=== PATIENT | male | born 1965 | race Caucasian/White ===

== ENCOUNTER 2017-01-04 14:09 | Emergency (ER) | payer MEDICAID ==
[~2017-01-04] VITALS: Ht 182.9 cm; Wt 86.2 kg
[~2017-01-04 14:09] MED LIST: AUG500 PO; KEPPRA500 MG PO; LAC PO
[2017-01-04 15:28] VITALS: BP 101/41
== END 2017-01-04 17:42 | disposition home or self-care (01) ==
LOC: ED 14:09
DX: F10.10 Alcohol abuse, uncomplicated (principal); F17.210 Nicotine dependence, cigarettes, uncomplicated
CPT/HCPCS: 99406

== ENCOUNTER 2017-01-05 16:09 | Emergency (ER) | payer MEDICAID ==
[~2017-01-05] VITALS: Ht 185.4 cm; Wt 95.2 kg
[2017-01-05 18:45] VITALS: BP 110/76
== END 2017-01-05 20:55 | disposition home or self-care (01) ==
LOC: ED 16:09
DX: F10.229 Alcohol dependence with intoxication, unspecified (principal)

== ENCOUNTER 2017-01-06 16:52 | Emergency (ER) | payer MEDICAID ==
[~2017-01-06] VITALS: Ht 177.8 cm; Wt 90.7 kg
== END 2017-01-06 17:40 | disposition left against medical advice (07) ==
LOC: ED 16:52
DX: F10.229 Alcohol dependence with intoxication, unspecified (principal)

== ENCOUNTER 2017-01-06 20:19 | Inpatient (IN) | payer MEDICAID ==
[~2017-01-06] VITALS: Ht 175.3 cm; Wt 82.7 kg
[2017-01-06 20:52] LABS: BASOPHIL % 0.8 % (0-2); PLATELET COUNT 283 x10^3mcL (130-400)
[2017-01-06 20:55] LABS: RED CELL DISTRIBUTION WIDTH 18.9 % (11.5-14.5)
[2017-01-06 21:02] LABS: CARBON DIOXIDE 25.7 mmol/L (21-32); CHLORIDE SERUM 101 mmol/L (98-107); CREATININE SERUM 0.8 mg/dL (0.7-1.3); GFR1 > 60 mL/min; GLUCOSE SERUM 99 mg/dL (74-106); POTASSIUM SERUM 3.5 mmol/L (3.5-5.1); SODIUM SERUM 139 mmol/L (136-145)
[2017-01-06 21:06] LABS: ALBUMIN 3.4 g/dL (3.4-5.0); ALKALINE PHOSPHATASE 102 U/L (46-116); ALT/SGPT 46 U/L (16-63); AST/SGOT 47 U/L (15-37); BILIRUBIN TOTAL 0.2 mg/dL (0.20-1.00); LIPASE 392 IU/L (73-393); TOTAL PROTEIN, SERUM 7.1 g/dL (6.4-8.2)
[2017-01-06 22:21] LABS: MAGNESIUM 1.7 mg/dL (1.8-2.4); PHOSPHOROUS 3.2 mg/dL (2.5-4.9)
[2017-01-06 22:23] LABS: CHOLESTEROL/HDL RATIO 1.5
[2017-01-06 22:37] VITALS: BP 96/51
[2017-01-06 22:40] LABS: T3 TOTAL 1.05 ng/mL
[2017-01-06 22:46] LABS: FREE T4 1.06 ng/dL (0.76-1.46); FREE THYROXINE INDEX 2.5 ug/dL (1.4-4.5); T4(THYROXINE) 6.8 ug/dL (4.7-13.3)
[2017-01-07 05:35] VITALS: BP 109/66
[2017-01-07 07:43] LABS: CALCIUM 8.2 mg/dL (8.5-10.1); CARBON DIOXIDE 24.7 mmol/L (21-32); CHLORIDE SERUM 107 mmol/L (98-107); CREATININE SERUM 0.7 mg/dL (0.7-1.3); GFR1 > 60 mL/min; GLUCOSE SERUM 78 mg/dL (74-106); MAGNESIUM 2.3 mg/dL (1.8-2.4); POTASSIUM SERUM 3.8 mmol/L (3.5-5.1); SODIUM SERUM 143 mmol/L (136-145)
[2017-01-07 07:59] LABS: BASOPHIL % 0.6 % (0-2); PLATELET COUNT 283 x10^3mcL (130-400); RED CELL DISTRIBUTION WIDTH 18.8 % (11.5-14.5)
[2017-01-07 10:17] VITALS: BP 132/72
[2017-01-07 13:29] VITALS: BP 129/88
[2017-01-07 15:16] VITALS: BP 129/88
== END 2017-01-07 15:27 | disposition home or self-care (01) | DRG 775 ==
LOC: ED 20:19 → DU 21:11
PROVIDERS: Emergency Medicine; Family Medicine; ADMIT Family Medicine
DX: F10.129 Alcohol abuse with intoxication, unspecified (principal); G92 Toxic encephalopathy; E83.42 Hypomagnesemia; G93.89 Other specified disorders of brain; E83.51 Hypocalcemia; D64.9 Anemia, unspecified; Z86.73 Personal history of transient ischemic attack (TIA), and cerebral infarction without residual deficits; G40.909 Epilepsy, unspecified, not intractable, without status epilepticus; Z59.0 Homelessness
CPT/HCPCS: 83880; 84439; G0480; J2060; J3475; J7030; Q0092

== ENCOUNTER 2017-01-09 22:37 | Emergency (ER) | payer MEDICAID ==
[2017-01-09 23:40] LABS: BASOPHIL % 0.9 % (0-2); PLATELET COUNT 273 x10^3mcL (130-400)
[2017-01-09 23:41] LABS: RED CELL DISTRIBUTION WIDTH 19.4 % (11.5-14.5)
[2017-01-09 23:49] LABS: CALCIUM 8.4 mg/dL (8.5-10.1); CARBON DIOXIDE 25.5 mmol/L (21-32); CHLORIDE SERUM 104 mmol/L (98-107); CREATININE SERUM 0.8 mg/dL (0.7-1.3); GFR1 > 60 mL/min; GLUCOSE SERUM 103 mg/dL (74-106); POTASSIUM SERUM 3.7 mmol/L (3.5-5.1); SODIUM SERUM 141 mmol/L (136-145)
[2017-01-09 23:54] LABS: ALBUMIN 3.4 g/dL (3.4-5.0); ALKALINE PHOSPHATASE 103 U/L (46-116); ALT/SGPT 53 U/L (16-63); AST/SGOT 58 U/L (15-37); BILIRUBIN TOTAL 0.2 mg/dL (0.20-1.00); MAGNESIUM 1.8 mg/dL (1.8-2.4); TOTAL PROTEIN, SERUM 7.1 g/dL (6.4-8.2)
[2017-01-10 05:58] VITALS: BP 147/92
== END 2017-01-10 05:58 | disposition home or self-care (01) ==
LOC: ED 22:37
PROVIDERS: Emergency Medicine
DX: F10.129 Alcohol abuse with intoxication, unspecified (principal)
CPT/HCPCS: G0480; J3490

== ENCOUNTER 2017-01-10 13:04 | Emergency (ER) | payer MEDICAID ==
[~2017-01-10] VITALS: Ht 180.3 cm; Wt 80.0 kg
[2017-01-10 17:36] VITALS: BP 107/71
== END 2017-01-10 17:36 | disposition home or self-care (01) ==
LOC: ED 13:04
DX: F10.10 Alcohol abuse, uncomplicated (principal)

== ENCOUNTER 2017-01-11 10:44 | Emergency (ER) | payer MEDICAID ==
[2017-01-11 13:46] VITALS: BP 125/83
== END 2017-01-11 16:28 | disposition home or self-care (01) ==
LOC: ED 10:44
DX: F10.10 Alcohol abuse, uncomplicated (principal)

== ENCOUNTER 2017-01-11 18:00 | Emergency (ER) | payer MEDICAID ==
[2017-01-11 19:39] LABS: BASOPHIL % 1.3 % (0-2); PLATELET COUNT 252 x10^3mcL (130-400)
[2017-01-11 19:41] LABS: CARBON DIOXIDE 23.6 mmol/L (21-32); CHLORIDE SERUM 105 mmol/L (98-107); CREATININE SERUM 0.8 mg/dL (0.7-1.3); GFR1 > 60 mL/min; GLUCOSE SERUM 85 mg/dL (74-106); POTASSIUM SERUM 3.8 mmol/L (3.5-5.1); SODIUM SERUM 142 mmol/L (136-145)
[2017-01-11 19:47] LABS: ALKALINE PHOSPHATASE 97 U/L (46-116); ALT/SGPT 80 U/L (16-63); AST/SGOT 111 U/L (15-37); BILIRUBIN TOTAL 0.36 mg/dL (0.20-1.00); TOTAL PROTEIN, SERUM 7.5 g/dL (6.4-8.2)
[2017-01-11 19:49] LABS: ALBUMIN 3.2 g/dL (3.4-5.0)
[2017-01-12 01:48] VITALS: BP 106/61
== END 2017-01-12 01:48 | disposition home or self-care (01) ==
LOC: ED 18:00
PROVIDERS: Emergency Medicine
DX: F10.129 Alcohol abuse with intoxication, unspecified (principal)
CPT/HCPCS: 36415; G0480

== ENCOUNTER 2017-01-12 20:56 | Emergency (ER) | payer MEDICAID ==
[2017-01-13 05:51] VITALS: BP 115/88
== END 2017-01-13 05:51 | disposition home or self-care (01) ==
LOC: ED 20:56
DX: F10.129 Alcohol abuse with intoxication, unspecified (principal)

== ENCOUNTER 2017-01-13 13:11 | Emergency (ER) | payer MEDICAID ==
[2017-01-13 20:33] VITALS: BP 117/75
== END 2017-01-13 20:33 | disposition home or self-care (01) ==
LOC: ED 13:11
DX: F10.129 Alcohol abuse with intoxication, unspecified (principal); F17.210 Nicotine dependence, cigarettes, uncomplicated

== ENCOUNTER 2017-01-14 23:00 | Emergency (ER) | payer MEDICAID ==
[~2017-01-14] VITALS: Ht 172.7 cm; Wt 90.7 kg
[2017-01-15 05:56] VITALS: BP 107/71
== END 2017-01-15 05:56 | disposition home or self-care (01) ==
LOC: ED 23:00
DX: Z72.89 Other problems related to lifestyle (principal)

== ENCOUNTER 2017-01-16 16:37 | Emergency (ER) | payer MEDICAID ==
[2017-01-16 18:48] VITALS: BP 106/60
== END 2017-01-16 21:24 | disposition home or self-care (01) ==
LOC: ED 16:37
DX: F10.229 Alcohol dependence with intoxication, unspecified (principal)

== ENCOUNTER 2017-01-17 10:04 | Emergency (ER) | payer MEDICAID ==
[~2017-01-17] VITALS: Ht 172.7 cm; Wt 68.0 kg
[2017-01-17 10:11] VITALS: BP 126/81
== END 2017-01-17 13:13 | disposition left against medical advice (07) ==
LOC: ED 10:04
DX: Z53.21 Procedure and treatment not carried out due to patient leaving prior to being seen by health care provider (principal)

== ENCOUNTER 2017-01-17 19:25 | Emergency (ER) | payer MEDICAID ==
[2017-01-18 02:10] VITALS: BP 141/84
== END 2017-01-18 02:10 | disposition home or self-care (01) ==
LOC: ED 19:25
DX: F10.129 Alcohol abuse with intoxication, unspecified (principal)

== ENCOUNTER 2017-01-18 23:38 | Emergency (ER) | payer MEDICAID ==
[~2017-01-18] VITALS: Ht 172.7 cm; Wt 77.1 kg
[2017-01-19 05:38] VITALS: BP 112/56
== END 2017-01-19 05:39 | disposition home or self-care (01) ==
LOC: ED 23:38
DX: F10.129 Alcohol abuse with intoxication, unspecified (principal)

== ENCOUNTER 2017-01-19 11:49 | Emergency (ER) | payer MEDICAID ==
[~2017-01-19] VITALS: Ht 188 cm; Wt 90.7 kg
[2017-01-19 16:10] VITALS: BP 119/72
== END 2017-01-19 16:17 | disposition home or self-care (01) ==
LOC: ED 11:49
DX: F10.229 Alcohol dependence with intoxication, unspecified (principal); Z59.0 Homelessness
CPT/HCPCS: 82962

== ENCOUNTER 2017-01-19 22:23 | Emergency (ER) | payer MEDICAID ==
[2017-01-20 05:41] VITALS: BP 119/78
== END 2017-01-20 05:41 | disposition home or self-care (01) ==
LOC: ED 22:23
DX: F10.129 Alcohol abuse with intoxication, unspecified (principal)

== ENCOUNTER 2017-01-22 13:12 | Emergency (ER) | payer MEDICAID ==
[2017-01-22 17:32] VITALS: BP 119/77
== END 2017-01-22 18:10 | disposition home or self-care (01) ==
LOC: ED 13:12
DX: F10.229 Alcohol dependence with intoxication, unspecified (principal)

== ENCOUNTER 2017-02-26 13:24 | Emergency (ER) | payer MEDICAID ==
[2017-02-26 15:25] LABS: CALCIUM 8.6 mg/dL (8.5-10.1); CARBON DIOXIDE 23.5 mmol/L (21-32); CHLORIDE SERUM 103 mmol/L (98-107); CREATININE SERUM 0.6 mg/dL (0.7-1.3); GFR1 > 60 mL/min; GLUCOSE SERUM 81 mg/dL (74-106); POTASSIUM SERUM 3.6 mmol/L (3.5-5.1); SODIUM SERUM 138 mmol/L (136-145)
[2017-02-26 16:30] VITALS: BP 100/59
== END 2017-02-26 16:30 | disposition home or self-care (01) ==
LOC: ED 13:24
PROVIDERS: Emergency Medicine
DX: F10.129 Alcohol abuse with intoxication, unspecified (principal); R40.0 Somnolence
CPT/HCPCS: 36415; G0480

== ENCOUNTER 2017-03-17 18:31 | Emergency (ER) | payer MEDICAID | END 2017-03-17 18:52 | disposition left against medical advice (07) | LOC: ED 18:31 | DX: Z53.21 Procedure and treatment not carried out due to patient leaving prior to being seen by health care provider (principal) ==

== ENCOUNTER 2017-03-17 19:21 | Emergency (ER) | payer MEDICAID | END 2017-03-17 20:27 | disposition left against medical advice (07) | LOC: ED 19:21 | DX: Z53.21 Procedure and treatment not carried out due to patient leaving prior to being seen by health care provider (principal) ==

== ENCOUNTER 2017-03-18 14:31 | Emergency (ER) | payer MEDICAID ==
[2017-03-18 18:07] VITALS: BP 102/69
== END 2017-03-18 18:07 | disposition home or self-care (01) ==
LOC: ED 14:31
DX: F10.129 Alcohol abuse with intoxication, unspecified (principal)

== ENCOUNTER 2017-03-18 20:58 | Emergency (ER) | payer MEDICAID ==
[~2017-03-18] VITALS: Ht 182.9 cm; Wt 71.7 kg
[2017-03-19 05:16] VITALS: BP 117/78
== END 2017-03-19 05:16 | disposition home or self-care (01) ==
LOC: ED 20:58
DX: F10.129 Alcohol abuse with intoxication, unspecified (principal)
CPT/HCPCS: Q0162